=== PATIENT | female | born 1945 | race Caucasian/White ===

== ENCOUNTER 2016-10-05 19:14 | Emergency (ER) | payer MEDICARE, OTHER ==
--- NOTE | ~2016-10-05 | CN ---
Consultation Report [facility] [address] [place]. [address] NAME: JESSIE RODRIGUEZ : 41 STATUS : [facility] PAT#: [id number] AGE: 71 ADM/REG DATE : 10/05/16 MR#: [id number] REPORT SERV DATE: 10/06/16 DICTATED BY: LAZARO PAINTING DATE: 10/06/16 REPORT STATUS : Draft TRANSCRIBED BY: BONIFACIO DATE: 10/06/16 CONSULTATION REPORT DATE OF CONSULTATION: 10/05/2016 REASON FOR CONSULTATION: Evaluation for right lower extremity ischemia. REFERRING PHYSICIAN: [facility]. BRIEF HISTORY: The patient is a 71-year-old female with a past medical history significant for hypertension, anemia, and depression as well as some ulcers that have been treated in the past by Dr. Wyatt Somers. She apparently has had one- to two-year history of progressive pain and numbness in her right foot. She is really dismissed, but has become minimally ambulatory lately. In fact, she moved in with her sister about a year ago because of issues with recurrent illnesses. She has not walked very much and has moved using a stroller or wheelchair a lot of the time. [facility] with severe pain in her right foot with some small wounds. There was some tentative plan to [facility], but that plan somehow got changed. She was supposed to see our partner, Dr. Hernandez, in the office, but then there were some issues with that also. She came into the hospital tonight for further evaluation and treatment as her pain is severe. Once again, there is not anything that acutely changed, but her pain has gradually worsened over the past couple of years. She specifically denies any acute change. PAST MEDICAL HISTORY: As above. PAST SURGICAL HISTORY: Includes bilateral hip surgery. SOCIAL HISTORY: She has a strong history of tobacco abuse. She denies any alcohol or drug use. ALLERGIES: LISTED PENICILLIN, SULFA, CODEINE, AND DEMEROL. WHILE I DO NOT KNOW THE REACTION TO THE SULFA AND CODEINE, THE PENICILLIN AND DEMEROL APPARENTLY CAUSED HER TONGUE TO SWELL AND HER THROAT TO SWELL UP. FAMILY HISTORY: Noncontributory. She has one living sister. MEDICATIONS: Documented on the chart and were reviewed. REVIEW OF SYSTEMS: A complete review of systems was performed and is negative with the exception of the aforementioned findings. Specifically, she denies any shortness of breath or chest pain. PHYSICAL EXAMINATION: VITAL SIGNS: Documented on the chart and were reviewed. Consultation Report [facility] [id number] [place]. [address] NAME: JESSIE RODRIGUEZ : 41 STATUS : [facility] PAT#: [id number] AGE: 71 ADM/REG DATE : 10/05/16 MR#: [id number] REPORT SERV DATE: 10/06/16 DICTATED BY: LAZARO PAINTING DATE: 10/06/16 REPORT STATUS : Draft TRANSCRIBED BY: MODJasvir DATE: 10/06/16 GENERAL: The patient is awake, alert, oriented, in no apparent distress. HEENT/NECK: Her head and neck examination is benign without any carotid bruits. HEART: Regular rate and rhythm. LUNGS: Have a few wheezes. ABDOMEN: Soft, nontender, nondistended, and very thin with a pulsatile abdominal mass. EXTREMITIES: Examination of the upper extremities reveals a normal complement of pulses without any significant edema or ischemic ulcerations. She has nonpalpable femoral, popliteal, and pedal pulses. She has no significant edema, but she has ischemic rubor of her feet. She has small eschars on the dorsum of her right foot. She is getting a little bit of breakdown on her heels. These are really superficial. She has no signs of infection. NEUROLOGICAL: Grossly nonfocal. MUSCULOSKELETAL: Reveals no flexion contractures. She is starting to get a little bit of a pressure sore on her sacrum. LABORATORY DATA: Her laboratory investigations are fairly unremarkable. I ordered and reviewed the images of CT scan of her aorta. The report is not available, but I interpreted the images independently. She has a disease thoracic aorta with no thoracic aneurysm. 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 Her renal arteries are patent, but she has a little bit of stenosis at her right renal artery. Her aorta is aneurysmal. In fact, there is a little bit of a saccular component or irregular component. The maximum diameter is 4 cm. The aneurysm is thrombosed all the way up to the renal arteries. Once again, the renal arteries are patent. There is some reconstitution of the external iliac arteries and maybe even the internal iliac arteries. They are calcified and so the common iliac arteries are very difficult to really assess. Her common femoral arteries are not assessed in the imaging. 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 I suspect that she probably has lower extremity arterial disease too. All of this atherosclerosis is in the setting of ischemic rest pain and a small ulceration on the dorsum of her right foot. I do not think that she is a very good candidate for an endovascular intervention, as her occlusion goes all the way up to her renal arteries and we would risk knocking thrombus into her renal arteries if we did a percutaneous intervention. However, I am unsure that she is a very good candidate for an open intervention. Her best operation would likely be an aortobifemoral bypass to treat the aneurysm as well as her lower extremity ischemia. 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 I would have to perform a suprarenal clamp with a standard infrarenal operation. I am not sure that she would tolerate this from a respiratory or cardiac perspective. She looks extremely frail. I would like for her to get a cardiac workup and respiratory workup. She is living with her sister in [place], so I will try to get her into see Dr. Frazier in [place]. I will also ask for his assistance in finding a weapons specialist to get to respiratory workup. I have emphasized the importance of smoking cessation. I do not think that it would be brantley to perform this operation at least two weeks out from her quitting smoking. Once again, this is a pretty big operation for this frail lady and I want to make sure that she is very optimized. I was very realistic with her and that I explained Consultation Report [facility] [id number] [place]. [address] NAME: JESSIE RODRIGUEZ : 41 STATUS : [facility]P [facility] PAT#: [id number] AGE: 71 ADM/REG DATE : 10/05/16 MR#: [id number] REPORT SERV DATE: 10/06/16 DICTATED BY: LAZARO PAINTING DATE: 10/06/16 REPORT STATUS : Draft TRANSCRIBED BY: MODL DATE: 10/06/16 that it will take her months to recover from this type of operation. There is a very good chance that she would not survive or would have significant morbidity. She may never return to her current lifestyle. Alternatively, we may consider an axillobifemoral bypass to treat her ischemic rest pain and really ignore the fact that she has a 4 cm infrarenal aortic aneurysm. While it does not meet size criteria to fix, it does have a saccular component and may reach the size that would need repair traditionally during her lifetime. I would like to treat all at once if possible. We did even introduce the possibility of palliative amputation. The patient did not seem agreeable to this. She is okay with going home with some pain medication to think about this and to get her remaining workup. Once again, I do not think that this is an acute emergency that needs to be addressed now. The patient's sister was initially very upset because of issues with transportation and last out. I did offer her an evaluation with Dr. Huerta in [place] because that would be in proximity to where they live. She insisted on coming here to [place] and I think that is reasonable. We will try to get as much workup done in [place] as we can before we make final decision. I will end up seeing her back in the office afterwards. She should be on an aspirin and a statin. I will leave it up to Dr. Frazier to start this, so that she can have her LFTs monitored. OUTSIDE DELIVERER/MODL Lazaro Painting M.D. / [id number] CC: Clay Marroquin M.D.
[~2016-10-05 19:14] MED LIST: ATEN100 PO; ATEN50 PO; CALTRAT600 PO; GI COCKTAIL 4040 ML PO/LIQ; IRON325 MG PO; JANUMET1 TAB PO; LEVSINTAB PO; LIBRAX PO; LISINOPRIL40 MG PO; NORCO1 TA2 PO; PR25 PO; PRILO PO; PRILOSEC40 MG PO; PRIN10 PO; PROTONIX PO; STARLIX60 PO; SUCR PO; TRAZ100 PO; ZOCOR10 PO; ZOCOR40 PO; ZOL50 PO; ZOLOFT25 MG PO; [UNRECOGNIZED DRUG - OTHER] PO
[2016-10-05 20:19] LABS: BASOPHILS 0.3 %; BASOPHILS ABSOLUTE 0.02 10/3/uL (0.0-0.16); EOSINOPHILS 0.3 %; EOSINOPHILS ABSOLUTE 0.02 10/3/uL (0.0-0.53); ER CBC TAT 0 Hrs 03 Mins; HEMATOCRIT 36.5 % (36.0-48.0); IMMATURE GRANULOCYTES 0.3 %; IMMATURE GRANULOCYTES ABSOLUTE 0.02 10/3/uL (0.0-0.11); LYMPHOCYTES 18.3 %; MEAN CORPUS HGB CONC 32.9 g/dL (32.0-36.0); MEAN CORPUSCULAR HEMOGLOB 30.4 pg (26.0-34.0); MEAN CORPUSCULAR VOLUME 92.4 fL (80-100); MEAN PLATELET VOLUME 9.5 fL (9.2-13.0); MONOCYTES 5.9 %; MONOCYTES ABSOLUTE 0.39 10/3/uL (0.21-1.20); NEUTROPHILS 74.9 %; NEUTROPHILS ABSOLUTE 4.91 10/3/uL (2.02-8.40); PLATELET COUNT 203 10/3/uL (150-400); RBC DISTRIBUTION WIDTH 14.4 % (12.0-16.0); RED CELL COUNT 3.95 10/6/uL (4.0-5.6); WHITE BLOOD CELLS 6.6 10/3/uL (4.5-10.5)
[2016-10-05 20:20] LABS: MANUAL DIFF NO %
[2016-10-05 20:32] LABS: BUN (BLOOD UREA NITROGEN) 22 MG/DL (6-23); CALCIUM, SERUM 8.5 MG/DL (8.5-10.4); CHLORIDE, SERUM 105 MMOL/L (96-112); CO2 (CARBON DIOXIDE) 29 MMOL/L (24-34); CREATININE 0.61 MG/DL (0.55-1.02); GFR AFRICAN AMERICAN 104 ML/MIN (>=60); GFR NON AFRICAN AMERICAN 90 ML/MIN (>=60); GLUCOSE, SERUM 148 MG/DL (60-99); PARTIAL THROMBO TIME 30.9 SEC (22.5-37.2); POTASSIUM, SERUM 4.1 MMOL/L (3.5-5.3); PROTIME (NOT ORD) 12.7 SEC (12.0-14.5); SODIUM, SERUM 142 MMOL/L (135-148)
[2016-10-05] MEDS ORDERED: NORCO1 TA2 PO (20:45)
[2016-10-05] MEDS ORDERED: OXYCON10 PO (20:47)
== END 2016-10-06 01:07 | disposition home or self-care (01) ==
LOC: ER 19:14
PROVIDERS: Nurse Practitioner Acute Care
DX: I74.3 Embolism and thrombosis of arteries of the lower extremities (principal); F17.200 Nicotine dependence, unspecified, uncomplicated; I10 Essential (primary) hypertension; F32.9 Major depressive disorder, single episode, unspecified; D64.9 Anemia, unspecified; Z88.5 Allergy status to narcotic agent; Z88.0 Allergy status to penicillin; Z88.2 Allergy status to sulfonamides; Z79.899 Other long term (current) drug therapy
CPT/HCPCS: 71275; 74175; 80048; 85025; 85610; 85730; 93005; 96374; 96375; 99284; J1170; J2405; Q9967